=== PATIENT | male | born 1960 | race Caucasian/White ===

== ENCOUNTER 2022-03-03 13:47 | Inpatient (IN) | payer OTHER ==
[2022-03-03] MEDS ORDERED: Sodium Chloride 0.9% 1,000 ML IV ONE (15:50)
[2022-03-03] MEDS ORDERED: Piperacillin/Tazobactam 3.375 GM in Sodium Chloride 0.9% 50 ML IV ONE (16:47)
[2022-03-03] MEDS ORDERED: Lactated Ringers 1,000 ML IV ONE ×2 (16:48→23:43)
[2022-03-03] MEDS ORDERED: VANCOmycin 1.5 GM/300 ML 1.5 GM in Premix Bag 1 BAG IV ONE (17:00)
[2022-03-03 17:28] LABS: BLOOD UREA NITROGEN,BUN 33 mg/dL (7.0-18.0); CARBON DIOXIDE,CO2 25.1 mmol/L (21.0-32.0); GLUCOSE RANDOM 114 mg/dL (74-106)
[2022-03-03 17:29] LABS: ESTIMATED GFR 37 mL/min (>60)
[2022-03-03] MEDS ORDERED: Sodium Chloride 0.9% 1,000 ML IV SCH (17:45)
[2022-03-03 17:47] LABS: CHLORIDE,CL 90 mmol/L (98-107); POTASSIUM,K 3.9 mmol/L (3.5-5.1); SODIUM,NA 126 mmol/L (136-148)
[2022-03-03] MEDS ORDERED: Iopamidol 755 MG/ML 500 ML Multipack Bottle IVPUSH STA (18:39)
[2022-03-03] MEDS ORDERED: Norepinephrine 4 MG in Dextrose 5% in Water 246 ML IV SCH ×2 (19:00)
[2022-03-03] MEDS ORDERED: Lidocaine 1% 5 ML VIAL INJECT ONE ×2 (19:34)
[2022-03-03] MEDS ORDERED: Azithromycin 500 MG in Sodium Chloride 0.9% 250 ML IV ONE (21:37)
[2022-03-03 22:33] LABS: CORONAVIRUS COVID-19 NAA NEGATIVE (NEGATIVE); INFLUENZA A NAA NEGATIVE (NEGATIVE); INFLUENZA B NAA NEGATIVE (NEGATIVE)
[2022-03-03] MEDS ORDERED: Albuterol/Ipratropium 3.0-0.5 MG/3 ML Neb Soln ONE (23:32)
[2022-03-03] MEDS ORDERED: Ondansetron 4 MG/2 ML SDV IVPUSH PRN (23:43)
[2022-03-03] MEDS ORDERED: Acetaminophen 325 MG Tab PO PRN (23:43)
[2022-03-03] MEDS ORDERED: Acetaminophen 650 MG Supp RECTAL PRN (23:43)
[2022-03-04] MEDS: Pantoprazole 40 MG in Sodium Chloride 0.9% 10 ML IVPUSH SCH ×2 (00:22→23:34)
[2022-03-04] MEDS: Heparin Sodium 5,000 Units/ML Vial SUBCUT SCH ×4 (00:23→23:34)
[2022-03-04] MEDS: Piperacillin/Tazobactam 4.5 GM in Sodium Chloride 0.9% 100 ML IV SCH ×3 (01:53→17:08)
[2022-03-04] MEDS: Lactated Ringers 1,000 ML IV SCH ×3 (02:03→22:34)
[2022-03-04] MEDS ORDERED: Albumin 5% 250 ML IV SCH (04:00)
[2022-03-04] MEDS: Hydrocortisone Sodium Succinate 100 MG/2 ML SDV IVPUSH SCH ×4 (04:53→22:07)
[2022-03-04 06:33] LABS: CARBON DIOXIDE,CO2 24.2 mmol/L (21.0-32.0); POTASSIUM,K 3.8 mmol/L (3.5-5.1)
[2022-03-04] MEDS ORDERED: Enoxaparin 40 MG/0.4 ML Syringe SUBCUT SCH (07:30)
[2022-03-04] MEDS: Phosphorus #1 250 MG Tab PO SCH ×4 (07:46→23:38)
[2022-03-04] MEDS: Simvastatin 20 MG Tab PO SCH (08:33)
[2022-03-04] MEDS: Azithromycin 500 MG in Sodium Chloride 0.9% 250 ML IV SCH (08:34)
[2022-03-04] MEDS: busPIRone 5 MG Tab PO SCH ×3 (09:12→21:34)
[2022-03-04] MEDS: BUPROPION 200 MG PO SCH ×2 (09:13→20:35)
[2022-03-04] MEDS ORDERED: Albuterol/Ipratropium 3.0-0.5 MG/3 ML Neb Soln ONE (09:37)
[2022-03-04] MEDS ORDERED: Sodium Chloride 0.9% 250 ML ONE (10:02)
[2022-03-04] MEDS: traZODone 50 MG Tab PO SCH ×2 (20:24→23:41)
[2022-03-04] MEDS: Montelukast 10 MG Tab PO SCH (20:34)
[2022-03-04] MEDS: Albuterol/Ipratropium 3.0-0.5 MG/3 ML Neb Soln NEB PRN (20:46)
[2022-03-05] MEDS: Piperacillin/Tazobactam 4.5 GM in Sodium Chloride 0.9% 100 ML IV SCH ×3 (01:06→17:01)
[2022-03-05] MEDS ORDERED: Albuterol/Ipratropium 3.0-0.5 MG/3 ML Neb Soln NEB PRN (03:30)
[2022-03-05] MEDS: Hydrocortisone Sodium Succinate 100 MG/2 ML SDV IVPUSH SCH ×4 (04:54→21:06)
[2022-03-05] MEDS: busPIRone 5 MG Tab PO SCH ×3 (05:01→21:06)
[2022-03-05] MEDS: Phosphorus #1 250 MG Tab PO SCH ×3 (05:01→18:42)
[2022-03-05] MEDS: Albuterol/Ipratropium 3.0-0.5 MG/3 ML Neb Soln NEB PRN ×2 (05:36→20:07)
[2022-03-05 06:21] LABS: POTASSIUM,K 3.4 mmol/L (3.5-5.1)
[2022-03-05 06:39] LABS: CARBON DIOXIDE,CO2 25.1 mmol/L (21.0-32.0)
[2022-03-05] MEDS: Lactated Ringers 1,000 ML IV SCH ×2 (07:42→17:00)
[2022-03-05] MEDS: Heparin Sodium 5,000 Units/ML Vial SUBCUT SCH ×3 (08:21→23:44)
[2022-03-05] MEDS: Simvastatin 20 MG Tab PO SCH (08:29)
[2022-03-05] MEDS ORDERED: Magnesium Sulfate/Water 2 GM in Premix Bag 1 BAG IV ONE (08:30)
[2022-03-05] MEDS ORDERED: Potassium Chloride 20 MEQ Tab.ER PO ONE (08:30)
[2022-03-05] MEDS: Azithromycin 500 MG in Sodium Chloride 0.9% 250 ML IV SCH (08:40)
[2022-03-05] MEDS ORDERED: guaiFENesin 600 MG Tab.ER PO ONE (09:07)
[2022-03-05] MEDS: BUPROPION 200 MG PO SCH ×2 (09:27→20:04)
[2022-03-05] MEDS: guaiFENesin/Dextromethorphan 100-10 MG/5 ML Soln 10 ML Cup PO PRN ×3 (09:55→20:07)
[2022-03-05] MEDS ORDERED: Polyethylene Glycol 3350 Powder 17 GM Packet PO ONE (13:33)
[2022-03-05] MEDS ORDERED: Docusate Sodium 100 MG Cap PO PRN (13:34)
[2022-03-05] MEDS: traZODone 50 MG Tab PO SCH (20:05)
[2022-03-05] MEDS: Montelukast 10 MG Tab PO SCH (20:07)
[2022-03-05] MEDS: Pantoprazole 40 MG in Sodium Chloride 0.9% 10 ML IVPUSH SCH (23:38)
[2022-03-06] MEDS: Phosphorus #1 250 MG Tab PO SCH ×2 (00:21→05:07)
[2022-03-06] MEDS: guaiFENesin/Dextromethorphan 100-10 MG/5 ML Soln 10 ML Cup PO PRN ×5 (00:21→21:45)
[2022-03-06] MEDS: traZODone 50 MG Tab PO SCH ×2 (00:22→21:48)
[2022-03-06] MEDS: Piperacillin/Tazobactam 4.5 GM in Sodium Chloride 0.9% 100 ML IV SCH ×3 (00:32→16:29)
[2022-03-06] MEDS: Hydrocortisone Sodium Succinate 100 MG/2 ML SDV IVPUSH SCH ×4 (03:12→21:50)
[2022-03-06] MEDS: Albuterol 8 GM Inhaler INH PRN ×3 (03:34→21:47)
[2022-03-06] MEDS: busPIRone 5 MG Tab PO SCH ×3 (05:08→21:45)
[2022-03-06] MEDS: Lactated Ringers 1,000 ML IV SCH ×2 (05:21→23:38)
[2022-03-06 05:39] LABS: CARBON DIOXIDE,CO2 28.1 mmol/L (21.0-32.0); POTASSIUM,K 3.6 mmol/L (3.5-5.1)
[2022-03-06] MEDS: Heparin Sodium 5,000 Units/ML Vial SUBCUT SCH ×3 (07:59→23:47)
[2022-03-06] MEDS ORDERED: Magnesium Sulfate/Water 2 GM in Premix Bag 1 BAG IV ONE (08:33)
[2022-03-06] MEDS: Simvastatin 20 MG Tab PO SCH (09:35)
[2022-03-06] MEDS: BUPROPION 200 MG PO SCH ×2 (09:38→21:48)
[2022-03-06] MEDS: Albuterol/Ipratropium 3.0-0.5 MG/3 ML Neb Soln NEB PRN (10:28)
[2022-03-06] MEDS: Azithromycin 500 MG in Sodium Chloride 0.9% 250 ML IV SCH (10:48)
[2022-03-06] MEDS: Montelukast 10 MG Tab PO SCH (21:48)
[2022-03-06] MEDS: Pantoprazole 40 MG in Sodium Chloride 0.9% 10 ML IVPUSH SCH (23:45)
[2022-03-07] MEDS: Piperacillin/Tazobactam 4.5 GM in Sodium Chloride 0.9% 100 ML IV SCH ×2 (01:34→08:25)
[2022-03-07] MEDS: guaiFENesin/Dextromethorphan 100-10 MG/5 ML Soln 10 ML Cup PO PRN ×3 (02:10→11:28)
[2022-03-07] MEDS: Hydrocortisone Sodium Succinate 100 MG/2 ML SDV IVPUSH SCH ×2 (03:41→09:34)
[2022-03-07] MEDS: busPIRone 5 MG Tab PO SCH (05:47)
[2022-03-07] MEDS: Albuterol 8 GM Inhaler INH PRN (05:48)
[2022-03-07 07:41] LABS: CARBON DIOXIDE,CO2 28.7 mmol/L (21.0-32.0); POTASSIUM,K 3.8 mmol/L (3.5-5.1)
[2022-03-07] MEDS ORDERED: Magnesium Sulfate/Water 2 GM in Premix Bag 1 BAG IV ONE (07:47)
[2022-03-07] MEDS: Heparin Sodium 5,000 Units/ML Vial SUBCUT SCH (08:24)
[2022-03-07] MEDS: Simvastatin 20 MG Tab PO SCH (08:24)
[2022-03-07] MEDS: BUPROPION 200 MG PO SCH (08:26)
[2022-03-07] MEDS: Azithromycin 500 MG in Sodium Chloride 0.9% 250 ML IV SCH (09:33)
== END 2022-03-07 15:20 | disposition home or self-care (01) | DRG 871 ==
LOC: MW.ED 13:47 → MW.ICU 21:03 → UNDOADMIN 22:44 → MW.MS 03-06 13:57
PROVIDERS: ADMIT Student in an Organized Health Care Education/Training Program; ATTEND Student in an Organized Health Care Education/Training Program
PROC: 02HV33Z Insertion of Infusion Device into Superior Vena Cava, Percutaneous Approach (ICD-10-PCS; principal; 2022-03-03)
PROC: 3E03329 Introduction of Other Anti-infective into Peripheral Vein, Percutaneous Approach (ICD-10-PCS; 2022-03-03)
PROC: 3E033XZ Introduction of Vasopressor into Peripheral Vein, Percutaneous Approach (ICD-10-PCS; 2022-03-04)
DX: A41.9 Sepsis, unspecified organism (principal); J15.9 Unspecified bacterial pneumonia; R65.21 Severe sepsis with septic shock; J96.01 Acute respiratory failure with hypoxia; E87.1 Hypo-osmolality and hyponatremia; N17.9 Acute kidney failure, unspecified; Z20.822 Contact with and (suspected) exposure to COVID-19; I10 Essential (primary) hypertension; E78.5 Hyperlipidemia, unspecified; C14.0 Malignant neoplasm of pharynx, unspecified; F41.9 Anxiety disorder, unspecified; Z79.899 Other long term (current) drug therapy
CPT/HCPCS: 0240U; 36415; 36556; 71045; 71045-26; 71275; 71275-26; 80053; 80202; 81003; 82330; 83605; 83735; 84100; 84484; 85025; 85379; 87040; 87389; 93005; 94640; 96361; 96365; 96367; 97163-GP; 99291; A9270-GY; C9113; J0456; J1644; J1720; J2405; J2543; J3370; J3475; J3490; J7030; J7050; J7120; J7620-GY; P9045; Q9967